=== PATIENT | male | born 1990 | race African-American/Black ===

== ENCOUNTER 2022-01-08 22:59 | Emergency (ER) | payer MEDICAID, SELFPAY ==
[2022-01-08 23:13] VITALS: BP 130/70; PULSE 57; RESP 18; TEMP 36.2; O2SAT 99
--- NOTE | 2022-01-08 23:17 | ED.EXTPRO ---
HPI - Extremity Problem General Chief complaint: Extremity Problem,Nontraumatic Stated complaint: possible blood clot in right leg Time Seen by Provider: 01/08/22 23:10 History of Present Illness HPI Narrative: Pt presents with pain in his right calf and is worried about a clot. Pt travels a lot and does a lot of flying and driving so has long periods of being immobile. Pt denies SOB or CP. Related Data Allergies Allergy/AdvReac Type Severity Reaction Status Date / Time No Known Allergies Allergy Verified 01/08/22 23:32 Review of Systems Review of Systems: All systems reviewed & are unremarkable except as noted in HPI and below Exam Const: General: healthy appearing Nutritional Appearance: well nourished Orientation/consciousness: patient oriented x3 Limitations: no limitations Chest: Chest palpation & inspection: normal inspection of the chest Resp: Effort & Inspection: normal respiratory effort Auscultation: clear to auscultation bilaterally Cardio: Rate: regular rate Rhythm: regular rhythm GI: GI Palp: Yes Soft to palpation Auscultation: normal bowel sounds Skin: General skin exam: normal color Rashes: no rashes Neuro: General: patient oriented x3, moves all extremities, no meningeal signs and no focal motor deficits Speech: normal speech Extrem: Other: tender to palpation right calf with some vericosity of veins Psych: Mental Status: mental status grossly normal Affect: normal affect Attitude: cooperative Course Vital Signs Vital signs: Vital Signs Temperature 97.1 F L 01/08/22 23:13 Pulse Rate 57 L 01/08/22 23:13 Respiratory Rate 18 01/08/22 23:13 Blood Pressure 130/70 01/08/22 23:13 Pulse Oximetry 99 01/08/22 23:13 Oxygen Delivery Room Air 01/08/22 23:13 Temperature 97.1 F L 01/08/22 23:13 Pulse Rate 57 L 01/08/22 23:13 Respiratory Rate 18 01/08/22 23:13 Blood Pressure 130/70 01/08/22 23:13 Pulse Oximetry 99 01/08/22 23:13 Oxygen Delivery Room Air 01/08/22 23:13 Discharge Plan Discharge Clinical Impression: Right calf pain Patient Disposition: Home, Self-Care Condition: Stable Instructions: Antibiotic Form, Deep Vein Thrombosis (DC), Leg Sprain (ED) Other Ambulatory Orders: US venous doppler LE RT (Routine) Timeframe: [id number] Location: Determined by Patient Ordered By: Brooke Alcocer III Follow-up/Referrals: PHYSICIAN NOT ON STAFF,NONSTAFF [Non-Staff] -
[2022-01-08] MEDS: ENOXAPARIN 100 MG/ML SYRINGE SUB-Q (23:52)
== END 2022-01-09 00:11 | disposition home or self-care (01) ==
LOC: ANHED 23:44
PROVIDERS: Emergency Provider Emergency Medicine
DX: M79.661 Pain in right lower leg (principal)
CPT/HCPCS: 96372; 99283; J1650

== ENCOUNTER 2022-01-09 08:10 | Outpatient (CLI) | payer MEDICAID, SELFPAY ==
--- NOTE | ~2022-01-09 | US_ITS ---
EXAMINATION: US venous doppler LE RT DATE: 01/09/2022 08:37 INDICATION: Right lower limb pain TECHNIQUE: Grayscale ultrasound images without and with compression and Doppler ultrasound images of the right lower extremity veins were obtained. COMPARISON: None. FINDINGS: The visualized portions of right common femoral vein, profunda (deep) femoral vein, femoral vein, pop liteal vein, peroneal trunk, posterior tibial veins, peroneal veins, gastrocnemius vein and greater s aphenous vein outflow are patent. IMPRESSION: 1. No deep venous thrombosis in the right lower limb. Reviewed, dictated and finalized at location D.
== END 2022-01-09 08:11 | disposition home or self-care (01) ==
PROVIDERS: Visit Provider Emergency Medicine
DX: M79.661 Pain in right lower leg (principal)
CPT/HCPCS: 93971